=== PATIENT | male | born 1970 | race Caucasian/White ===

== ENCOUNTER 2019-03-14 06:40 | Emergency (ER) | payer MEDICAID, OTHER ==
[2019-03-14] MEDS: LORAZEPAM 1 MG TAB PO (07:00)
== END 2019-03-14 08:20 | disposition home or self-care (01) ==
LOC: E/R 06:40
DX: G40.909 Epilepsy, unspecified, not intractable, without status epilepticus (principal); R40.2142 Coma scale, eyes open, spontaneous, at arrival to emergency department; R40.2252 Coma scale, best verbal response, oriented, at arrival to emergency department; R40.2362 Coma scale, best motor response, obeys commands, at arrival to emergency department
CPT/HCPCS: 99283; Z7502